=== PATIENT | female | born 2000 | race Native Hawaiian/Other Pacific Islander ===

== ENCOUNTER 2020-03-21 13:46 | Outpatient (CLI) | payer OTHER | END 2020-03-21 22:27 | disposition home or self-care (01) | LOC: LABW 13:46 | DX: N91.1 Secondary amenorrhea (principal) | CPT/HCPCS: 36415; 84702 ==

== ENCOUNTER 2020-09-25 18:43 | Emergency (ER) | payer OTHER ==
[~2020-09-25] VITALS: Ht 154.9 cm; Wt 50.8 kg
[2020-09-25 19:26] LABS: PLATELET COUNT 373 K/uL (152-353)
[2020-09-25 19:43] LABS: POTASSIUM 3.9 mmol/L (3.6-5.2)
[2020-09-25 20:20] VITALS: BP 112/62; TEMP 97.9
== END 2020-09-25 20:20 | disposition home or self-care (01) ==
LOC: ED 18:43
PROVIDERS: Family Medicine
DX: R10.84 Generalized abdominal pain (principal); Z3A.01 Less than 8 weeks gestation of pregnancy
CPT/HCPCS: 36415; 80053; 81000; 81025; 85027; 99283